=== PATIENT | female | born 1975 | race Caucasian/White ===

== ENCOUNTER 2016-12-25 08:48 | Emergency (ER) | payer BC ==
--- NOTE | 2016-12-25 09:50 | ER Document Report ---
ED General - General Chief Complaint: Leg Swelling Stated Complaint: LEG PAIN Time Seen by Provider: 12/25/16 09:17 TRAVEL OUTSIDE OF THE [place] IN LAST 30 DAYS: No - HPI Patient complains to provider of: Bilateral leg swelling Notes: Patient is coming in for bilateral leg swelling. Patient states ongoing for greater than a week. Patient states works multiple jobs is on her feet throughout the day. Patient states she is unable to elevate her legs at night due to that she only takes 2 hour naps. Patient states that her [employer] has placed her on 12.5 of hydrochlorothiazide for the swelling however swelling continues. Patient denies any water restrictions denies watching her salt intake or education about swelling salt. Patient denies any other past medical history denies travel or history of PE DVT. Upon evaluation patient is very agitated patient does not understand why we would need to take over jogging pants to place her in a gown. - Related Data Allergies/Adverse Reactions: No Known Allergies Allergy (Verified 12/25/16 08:53) Past Medical History - Social History Smoking Status: Current Every Day Smoker Chew tobacco use (# tins/day): No Frequency of alcohol use: None Drug Abuse: None Family History: Reviewed & Not Pertinent - Past Medical History Cardiac Medical History: Denies: Hx Coronary Artery Disease, Hx Heart Attack, Hx Hypertension Pulmonary Medical History: Denies: Hx Asthma, Hx Bronchitis, Hx COPD, Hx Pneumonia Neurological Medical History: Denies: Hx Cerebrovascular Accident, Hx Seizures Endocrine Medical History: Reports: Hx Hypothyroidism Renal/ Medical History: Denies: Hx Peritoneal Dialysis Musculoskeltal Medical History: Denies Hx Arthritis Past Surgical History: Reports: Hx Abdominal Surgery - hernia repair, Hx Cholecystectomy, Hx Gynecologic Surgery - essure. Denies: Hx Pacemaker - Immunizations Hx Diphtheria, Pertussis, Tetanus Vaccination: Yes Review of Systems - Review of Systems Constitutional: No symptoms reported EENT: No symptoms reported Cardiovascular: No symptoms reported Respiratory: No symptoms reported Gastrointestinal: No symptoms reported Genitourinary: No symptoms reported Female Genitourinary: No symptoms reported Musculoskeletal: Leg swelling Skin: No symptoms reported Hematologic/Lymphatic: No symptoms reported Neurological/Psychological: No symptoms reported -: Yes All other systems reviewed and negative Physical Exam - Vital signs Vitals: Temp Pulse Resp BP Pulse Ox 98.1 F 85 20 123/75 99 12/25/16 08:52 12/25/16 08:52 12/25/16 08:52 12/25/16 08:52 12/25/16 08:52 Interpretation: Normal - General General appearance: Appears well, Alert - HEENT Head: Normocephalic, Atraumatic Eyes: Normal Pupils: PERRL - Respiratory Respiratory status: No respiratory distress Chest status: Nontender Breath sounds: Normal Chest palpation: Normal - Cardiovascular Rhythm: Regular Heart sounds: Normal auscultation Murmur: No - Abdominal Inspection: Normal Distension: No distension Bowel sounds: Normal Tenderness: Nontender Organomegaly: No organomegaly - Back Back: Normal, Nontender - Extremities General upper extremity: Normal inspection, Nontender, Normal color, Normal ROM , Normal temperature General lower extremity: Normal inspection, Nontender, Edema - 2+ edema bilateral lower legs. No calf tenderness., Normal color, Normal ROM, Normal temperature, Normal weight bearing. No: Rodolfo's sign - Neurological Neuro grossly intact: Yes Cognition: Normal Orientation: AAOx4 Leila Coma Scale Eye Opening: Spontaneous Felton Coma Scale Verbal: Oriented Felton Coma Scale Motor: Obeys Commands Felton Coma Scale Total: 15 Speech: Normal Motor strength normal: LUE, RUE, LLE, RLE Sensory: Normal - Psychological Associated symptoms: Normal affect, Normal mood - Skin Skin Temperature: Warm Skin Moisture: Dry Skin Color: Normal Course - Re-evaluation Re-evalutation: 12/25/16 14:19 Upon initial evaluation explained to the patient and we will check basic laboratory studies at this time feel that she is very low suspicion for bilateral DVTs is that the swelling does not go beyond her knees. Explained that we will more likely change her diuretic from I for thiazide to Lasix. Upon explaining this to the patient before the initial lab work is performed patient states that she wasted her time coming here. I did explain to the patient that if this is the way she feels that this was my medical evaluation she can feel free to leave any time I do not feel there is any life-threatening issues ongoing at this time. Laboratory studies not show any signs of renal failure. Will start patient on Lasix patient was educated about the use of compression stockings elevation of her legs whenever she is resting sitting and need follow-up with primary care physician. Patient stated understanding will discharge home. 12/25/16 14:20 - Vital Signs Vital signs: Temp Pulse Resp BP Pulse Ox 98.3 F 89 16 120/70 100 12/25/16 11:00 12/25/16 11:00 12/25/16 11:00 12/25/16 11:00 12/25/16 11:00 - Laboratory Result Diagrams: 12/25/16 09:55 Laboratory results interpreted by me: 12/25/16 09:55 Glucose 69 L Discharge - Discharge Clinical Impression: Localized swelling of both lower legs Condition: Good Disposition: HOME, SELF-CARE Instructions: Dependent Edema ([facility]), Family Physicians / Practices Additional Instructions: Please follow-up with your primary care physician or physicians provided. Laboratory studies today show no signs of kidney damage. recommend change in diet to help control your swelling please observe a low-salt diet. Avoid sodas process meats which contain a lot of sodium. Sodium will cause swelling to worsen. Also elevate your legs at night or whenever you are resting above the level of your heart to allow the fluid to drain down. Use compression stockings whenever up on her feet. Also recommend stop smoking as this will also contribute to leg swelling. Prescriptions: Compression Socks, Medium [Futuro Restoring] 1 each MC DAILY #1 each Furosemide [Lasix 20 mg Tablet] 20 mg PO QAM #30 tablet Forms: Return to Work
[2016-12-25 10:29] LABS: ANION GAP 13 (5-19); BLOOD UREA NITROGEN 12 mg/dL (7-20); CALCIUM 9.6 mg/dL (8.4-10.2); CARBON DIOXIDE 25 mmol/L (22-30); CHLORIDE 106 mmol/L (98-107); CREATININE RESULT 0.57 mg/dL (0.52-1.25); GLUCOSE 69 mg/dL (75-110); POTASSIUM 4.3 mmol/L (3.6-5.0); SODIUM 143.6 mmol/L (137-145)
[2016-12-25] MEDS ORDERED: FUROSEMIDE 20 MG TABLET PO ONE (10:43)
[2016-12-25 11:03] VITALS: BP 120/70
== END 2016-12-25 11:04 | disposition home or self-care (01) ==
LOC: ER 08:48
DX: M79.89 Other specified soft tissue disorders (principal); F17.200 Nicotine dependence, unspecified, uncomplicated; E03.9 Hypothyroidism, unspecified; Z90.49 Acquired absence of other specified parts of digestive tract
CPT/HCPCS: 36415; 80048; 99283

== ENCOUNTER → 2017-01-24 | Outpatient (CLI) | payer BC ==
--- NOTE | 2017-01-24 13:40 | EKG REPORT ---
SEVERITY:- NORMAL ECG - SINUS RHYTHM : Confirmed by: Rufino Knight MD 24-Jan-2017 13:40:20
== END ==
LOC: OD 08:18
PROVIDERS: ATTEND Advanced Practice Midwife
DX: R06.02 Shortness of breath (principal); R53.83 Other fatigue; R60.0 Localized edema
CPT/HCPCS: 93005; 93010

== ENCOUNTER → 2018-11-22 | Outpatient (CLI) | payer BC, MEDICAID ==
--- NOTE | 2018-11-22 10:29 | RADIOLOGY REPORT (SQ) ---
EXAM DESCRIPTION: MRI HEAD COMBO COMPLETED DATE/TIME: 11/22/2018 8:14 am REASON FOR STUDY: SLURRED SPEECH (R47.81), UNSPEC VISUAL DISTURBANCE (H53.9) H53.9 UNSPECIFIED VISU AL DISTURBANCE COMPARISON: None. TECHNIQUE: Multiplanar imaging includes noncontrasted T1, T2, FLAIR, diffusion with ADC map and post gadolinium contrast T1 sequences. Images stored on PACS. CONTRAST TYPE AND DOSE: 10 mL Dotarem. RENAL FUNCTION: Not indicated. ACR Type II contrast agent associated with few, if any, unconfounded cases of NSF LIMITATIONS: None. FINDINGS: ANATOMY: No anomalies. Normal vascular flow voids. Pituitary fossa normal. CSF SPACES: Normal in size and contour. No hemorrhage. CEREBRUM: Sulci and gyri normal in size and contour. Normal white matter signal on FLAIR imaging. No evidence of hemorrhage, mass, or extraaxial fluid collection. No abnormal enhancement post contrast. POSTERIOR FOSSA: No signal alteration. No hemorrhage. No edema, masses, or mass effect. Internal yaakov tory canals, cerebellopontine angles, mastoids normal. No enhancing lesions. No abnormal enhancement post contrast. DIFFUSION IMAGING: Negative for acute or subacute infarction. ORBITS: No masses. Globes normal. PARANASAL SINUSES: No fluid levels. Mucosa normal. OTHER: No other significant finding. IMPRESSION: NORMAL MRI OF THE BRAIN WITHOUT AND WITH INTRAVENOUS GADOLINIUM CONTRAST. EVIDENCE OF ACUTE STROKE: NO. TECHNICAL DOCUMENTATION: JOB ID: [id number] [employer]- All Rights Reserved Reading location - IP/workstation name: [email or web address]
== END ==
LOC: RAD 07:10
PROVIDERS: ATTEND Family Medicine
DX: H53.9 Unspecified visual disturbance (principal); R47.81 Slurred speech
CPT/HCPCS: 70553; A9576

== ENCOUNTER → 2019-06-22 | Outpatient (CLI) | payer BC ==
--- NOTE | 2019-06-22 14:04 | RADIOLOGY REPORT (SQ) ---
EXAM DESCRIPTION: MRI LUMBAR SPINE WITHOUT COMPLETED DATE/TIME: 06/22/2019 1:25 pm REASON FOR STUDY: M54.16 RADICULOPATHY, LUMBAR REGION M54.16 RADICULOPATHY, LUMBAR REGION COMPARISON: None. TECHNIQUE: Sagittal and Axial imaging includes T1, T2, STIR and gradient echo sequences. Coronal T2/ HASTE imaging. LIMITATIONS: None. FINDINGS: VISUALIZED UPPER ABDOMEN: Limited evaluation. No acute or suspicious findings suggested. SEGMENTATION: No transitional anatomy. The lowest well-developed disc space is labeled L5-S1. ALIGNMENT: Anatomic. VERTEBRAE: Intact. BONE MARROW: Endplate marrow edema at L4-5. Mild endplate marrow edema at L5-S1. Mild marrow edema is also noted in the left L5 pedicle. No fracture or worrisome bone lesion or evidence of marrow rep lacement. DISC SIGNAL: Variable signal and height loss. Includes diminished signal and height at the L4-5 and L5-S1 levels. POSTERIOR ELEMENTS: Lower lumbar multilevel facet arthropathy with associated mild overgrowth. No p ars defect. HARDWARE: None in the spine. CORD AND CONUS: Normal in size and signal intensity. Conus at the appropriate level. SOFT TISSUES: No aortic aneurysm seen. No bulky retroperitoneal adenopathy or mass. No paraspinal mas s or fluid. L1-L2: No significant spinal stenosis or exit foraminal stenosis. L2-L3: Minimal posterior bulge or protrusion. Mild posterior element overgrowth. No suggestion of s ignificant impingement or stenosis. L3-L4: Broad posterior disc bulging. No nerve root impingement. No high-grade central stenosis. No critical foraminal narrowing. L4-L5: Broad posterior disc bulge with some associated disc spurring. This flattens the ventral thec al sac. Posterior ligament thickening and facet overgrowth with mild -moderate central stenosis. Th ere is bilateral lateral recess encroachment. Moderate left and mild right foraminal stenosis. L5-S1: Broad disc osteophyte complex. Facet overgrowth. Generally mild central narrowing with bilat eral lateral recess encroachment. There is moderate bilateral foraminal narrowing. LOWER THORACIC: Incompletely imaged. No stenosis seen. SACRUM: Visualized upper sacrum intact. OTHER: No other significant findings. IMPRESSION: 1. Spondylosis. This looks most pronounced at L4-5 and L5-S1. Disc and facet disease here with asso ciated considerable reactive endplate marrow edema. Up to moderate stenosis. Detailed as above. TECHNICAL DOCUMENTATION: JOB ID: [id number] 2010 [employer]- All Rights Reserved Reading location - IP/workstation name: [email or web address]
== END ==
LOC: RAD 12:46
PROVIDERS: ATTEND Specialist
DX: M51.16 Intervertebral disc disorders with radiculopathy, lumbar region (principal); M48.061 Spinal stenosis, lumbar region without neurogenic claudication
CPT/HCPCS: 72148

== ENCOUNTER 2020-03-19 13:19 | Emergency (ER) | payer BC ==
[2020-03-19 13:27] VITALS: BP 140/87
[2020-03-19] MEDS ORDERED: KETOROLAC TROMETHAMINE 60 MG/2 ML SDV IM ONE (13:57)
--- NOTE | 2020-03-19 14:19 | ER Document Report ---
HPI - HPI Patient complains to provider of: Bilateral hand pain and numbness Time Seen by Provider: 03/19/20 13:42 Pain Level: 5 Notes: 44-year-old female to the emergency department with complaints of bilateral hand pain and numbness that has been going on for several months. She states she is being seen by Dr. Grande. She states that she was diagnosed with carpal tunnel. She had an nerve conduction study test. She states that Dr. Grande told her he wanted to do surgery on her. She states that she will not have surgery until she gets an MRI of her hands. She admits that she missed her appointment for MRI which was supposed to be March 03. She states she tried to call the office today and asked for the MRI to be rescheduled. She has not heard back from the office just yet. She denies any new falls. The pain seems to be worse at night. She states it feels like her hands are asleep and she is constantly moving them to try to wake them up. She states that she has been on gabapentin which did not work. She takes about 600 mg 3 times a day. She also states that she has been taking ibuprofen which also does not work. She states that she has had cortisone injections into her wrist but again that has not relieved her pain. She states the pain keeps her up at night. - CONSTITUTIONAL Constitutional: DENIES: Fever, Chills - EENT EENT: DENIES: Sore Throat, Ear Pain, Congestion - NEURO Neurology: DENIES: Headache - CARDIOVASCULAR Cardiovascular: DENIES: Chest pain - RESPIRATORY Respiratory: DENIES: Trouble Breathing, Coughing - GASTROINTESTINAL Gastrointestinal: DENIES: Abdominal Pain, Nausea, Patient vomiting, Diarrhea - MUSCULOSKELETAL Musculoskeletal: REPORTS: Extremity pain - bilateral hands with numbness - DERM Skin Color: Normal Skin Problems: None Past Medical History - General Information source: Patient - Social History Smoking Status: Smoker,Current Status Unk Family History: Reviewed & Not Pertinent - Past Medical History Cardiac Medical History: Denies: Hx Coronary Artery Disease, Hx Heart Attack, Hx Hypertension Pulmonary Medical History: Denies: Hx Asthma, Hx Bronchitis, Hx COPD, Hx Pneumonia Neurological Medical History: Denies: Hx Cerebrovascular Accident, Hx Seizures Endocrine Medical History: Reports: Hx Hypothyroidism Renal/ Medical History: Denies: Hx Peritoneal Dialysis Musculoskeletal Medical History: Denies Hx Arthritis Past Surgical History: Reports: Hx Abdominal Surgery - hernia repair, Hx Cholecystectomy, Hx Gynecologic Surgery - essure. Denies: Hx Pacemaker - Immunizations Hx Diphtheria, Pertussis, Tetanus Vaccination: Yes Vertical Provider Document - CONSTITUTIONAL Agree With Documented VS: Yes Exam Limitations: No Limitations General Appearance: WD/WN, No Apparent Distress Notes: Patient is very shaw with her answers to questions. She is obviously frustrated this has been going on so long. She has difficulty expressing all the things that have been going on with her because she is so angry that it is continuing. - INFECTION CONTROL TRAVEL OUTSIDE OF THE [place] IN LAST 30 DAYS: No - HEENT HEENT: Atraumatic, Normocephalic, PERRLA - NECK Neck: Normal Inspection, Supple - RESPIRATORY Respiratory: Breath Sounds Normal, No Respiratory Distress. negative: Rales, Rhonchi, Wheezing - CARDIOVASCULAR Cardiovascular: Regular Rate, Regular Rhythm, No Murmur - GI/ABDOMEN Gastrointestinal: Abdomen Soft, Abdomen Non-Tender, No Organomegaly - BACK Back: Normal Inspection - MUSCULOSKELETAL/EXTREMETIES Notes: There is tenderness to palpation over bilateral hands. Positive Tinel's and Phalen's. There is no edema or erythema. Handgrip is slightly decreased in the left hand-approximately 4 out of 5. 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 Patient states this is her dominant hand is her left hand and she has the worst symptoms in this hand. There is no snuffbox tenderness bilaterally. Radial pulses are intact and equal. Nontender to palpation to bilateral elbows and shoulders. - NEURO Level of Consciousness: Awake, Alert Motor/Sensory: No Motor Deficit, No Sensory Deficit - DERM Integumentary: Warm, Dry, No Rash Course - Re-evaluation Re-evalutation: 03/19/20 impression: Carpal tunnel syndrome. We will send patient home with small amount of pain medicines. Of advised that I can only send home with 3 day s of medicine. From there she will have to get pain management through Dr. Grande or primary care. I did, per patient request, call Dr. Grande's office. I inquired about where the MRI order was. It has been sent to Dr. Grande who is awaiting signature. I have advised patient of this and she is to call to see when the MRI were occur. Encouraged her to wear her splints that were given to her by Dr. Grande and have also given her our transplant case manager phone number should she run into any further problems. She agrees with the plan. - Vital Signs Vital signs: Temp Pulse Resp BP Pulse Ox 98.5 F 72 16 140/87 H 97 03/19/20 13:25 03/19/20 13:25 03/19/20 13:25 03/19/20 13:25 03/19/20 13:25 Discharge - Discharge Clinical Impression: Carpal tunnel syndrome, bilateral Condition: Stable Disposition: HOME, SELF-CARE Instructions: Carpal Tunnel Syndrome ([facility]) Additional Instructions: Take medicines as prescribed. Return if worse. Follow up with Dr. Grande for orthopedic follow up. Take medicines as prescribed. Prescriptions: Hydrocodone/Acetaminophen [[place] 5-325 mg Tablet] 1 tab PO Q8H #10 tablet Forms: Return to Work Referrals: TAYLOR MACIAS DO [Primary Care Provider] - Follow up in 1 week CARROLL GRANDE DO [ACTIVE STAFF] - Follow up in 3-5 days
== END 2020-03-19 14:27 | disposition home or self-care (01) ==
LOC: ER 13:19
DX: G56.03 Carpal tunnel syndrome, bilateral upper limbs (principal); Z79.899 Other long term (current) drug therapy; Z79.1 Long term (current) use of non-steroidal anti-inflammatories (NSAID)
CPT/HCPCS: 99284; 96372; J1885

== ENCOUNTER → 2020-03-31 | Outpatient (CLI) | payer BC ==
--- NOTE | 2020-04-01 12:56 | RADIOLOGY REPORT (SQ) ---
EXAM DESCRIPTION: MRI LT UPPER JOINT WITHOUT IMAGES COMPLETED DATE/TIME: 03/31/2020 7:57 am REASON FOR STUDY: PAIN IN LEFT HAND M79.642 PAIN IN LEFT HAND COMPARISON: None. TECHNIQUE: Left wrist images acquired and stored on PACS. Multiplanar images include fat sensitive sequences as T1, fluid sensitive sequences as FST2/STIR, cartilage sensitive sequences as FSPD, gradi ent echo sequences. LIMITATIONS: Motion. FINDINGS: BONE MARROW: Subchondral edema and subchondral cyst formation scaphoid, lunate, to a lesse r degree capitate. No definitive erosions. Correlate with plain films. CARPAL ALIGNMENT AND ARTICULATION: Small osteophytes 1st carpometacarpal joint. Normal congruity of sigmoid notch at level of distal RUJ without positive or negative ulnar variance. Normal capitolunate angle. No widening of scapholunate articulation. EFFUSION: None noted. No loose bodies. SCAPHOLUNATE LIGAMENT: Intact without tear. LUNATE-TRIQUETRAL LIGAMENT: Intact without tear. TFC COMPLEX: Radial and ulnar attachments normal. Meniscus intact. Extensor carpi ulnaris tendon norm al without tendinopathy. EXTRINSIC LIGAMENTS AND DISTAL RADIO-ULNAR JOINT: Dorsal and volar distal RUJ intact without subluxat ion of the distal ulna. 1-6 EXTENSOR COMPARTMENTS: Normal. Specifically no tendinopathy of the abductor pollicis longus or ex tensor pollicis brevis to suggest de Quervain's Syndrome. CARPAL TUNNEL AND MEDIAN NERVE: Normal volume and morphology of the carpal tunnel proximally at the l evel of the radiocarpal joint and distally at the hook of the hamate. No thickening or signal alterat ion of the median nerve. OTHER: No other significant finding. IMPRESSION: Arthropathy proximal carpal row and base of 1st metacarpal. No acute findings. TECHNICAL DOCUMENTATION: JOB ID: [id number] 2010 [employer]- All Rights Reserved Reading location - IP/workstation name: [email or web address]
== END ==
LOC: RAD 06:59
PROVIDERS: ATTEND Orthopaedic Surgery
DX: M12.842 Other specific arthropathies, not elsewhere classified, left hand (principal)

== ENCOUNTER → 2020-04-23 | Outpatient (CLI) | payer BC, MEDICAID ==
--- NOTE | 2020-04-23 13:52 | RADIOLOGY REPORT (SQ) ---
EXAM DESCRIPTION: VENOUS UNILATERAL LOWER IMAGES COMPLETED DATE/TIME: 04/23/2020 9:36 am REASON FOR STUDY: LLE PAIN M79.662 PAIN IN LEFT LOWER LEG COMPARISON: None. TECHNIQUE: Dynamic and static michel scale and color images acquired of the left leg venous system. Se lected spectral images acquired with additional compression and augmentation maneuvers. The contralat eral common femoral vein and saphenofemoral junction were also imaged. Images stored on PACS. LIMITATIONS: None. FINDINGS: COMMON FEMORAL: Normal phasicity, compression and augmentation. No visualized echogenic ma terial on michel scale. No defects on color images. FEMORAL: Normal compression and augmentation. No visualized echogenic material on michel scale. No defe cts on color images. POPLITEAL: Normal compression, augmentation. No visualized echogenic material on michel scale. No defec ts on color images. CALF VESSELS: Normal compression, augmentation. No visualized echogenic material on michel scale. No de fects on color images. GSV and SSV: Normal compression, augmentation. No visualized echogenic material on michel scale. No def ects on color images. ANY DEEP VENOUS INSUFFICIENCY: Not evaluated. ANY EVIDENCE OF POPLITEAL CYST: No. OTHER: No other significant finding. CONTRALATERAL COMMON FEMORAL VEIN AND SAPHENOFEMORAL JUNCTION: Normal phasicity, compression and augmentation. No visualized echogenic material on michel scale. No de fects on color images. IMPRESSION: NO EVIDENCE DVT OR SVT IN THE LEFT LEG. TECHNICAL DOCUMENTATION: JOB ID: [id number] 2010 [employer]- All Rights Reserved Reading location - IP/workstation name: [email or web address]
== END ==
LOC: SP 08:37
PROVIDERS: ATTEND Nurse Practitioner Family
DX: M79.662 Pain in left lower leg (principal)
CPT/HCPCS: 93971